=== PATIENT | male | born 1955 ===

== ENCOUNTER 2022-12-12 08:03 | Day surgery (SDC) | payer OTHER ==
[~2022-12-12] VITALS: Ht 175.3 cm; Wt 79.8 kg
[~2022-12-12 08:03] MED LIST: CRESTOR20 MG PO; NORVASC5 MG PO
== END 2022-12-12 16:55 | disposition home or self-care (01) ==
LOC: CIR.AMB 08:03
PROVIDERS: ATTEND Surgery
DX: K40.90 Unilateral inguinal hernia, without obstruction or gangrene, not specified as recurrent (principal); D49.59 Neoplasm of unspecified behavior of other genitourinary organ; L72.0 Epidermal cyst; Z91.013 Allergy to seafood; Z20.822 Contact with and (suspected) exposure to COVID-19; I10 Essential (primary) hypertension
CPT/HCPCS: 49650; C1781